=== PATIENT | male | born 1945 | race Caucasian/White ===

== ENCOUNTER 2023-01-09 14:41 | Outpatient (CLI) | payer OTHER, SELFPAY ==
--- NOTE | 2023-01-09 15:15 | USCV_ITS ---
Hernandez Myles Age: 77 Gender: M : 1945 Exam Date: 01/09/2023 15:14 Ordering Phys: Dany Monroe Technologist: AZEEM Exam Location: [facility] [place] Indication: sinus christine BP: 155 / 80 HR: 60 Rhythm: Sinus Technical Quality: Adequate MEASUREMENTS (Male / Female) Normal Values 2D ECHO LV Diastolic Diameter PLAX 4.8 cm 4.2 - 5.9 / 3.9 - 5.3 cm LV Systolic Diameter PLAX 1.8 cm IVS Diastolic Thickness 1.0 cm 0.6 - 1.0 / 0.6 - 0.9 cm IVS Systolic Thickness 2.0 cm LVPW Diastolic Thickness 0.5 cm 0.6 - 1.0 / 0.6 - 0.9 cm LVPW Systolic Thickness 1.6 cm LVOT Diameter 2.0 cm LV Ejection Fraction 2D Teich 90.3 % LV Ejection Fraction MOD 2C 63.8 % LV Ejection Fraction 2C AL 63.9 % LA Diameter 4.3 cm LA Width 3.9 cm LA Height 5.1 cm RA Width 3.6 cm RA Height 5.3 cm Aorta at Sinotubular Diameter 2.4 cm IVC Diameter 2.2 cm M-MODE Aortic Annulus Diameter 3.1 cm LA Ao Ratio MM 1.5 MV E Point Septal Separation 0.6 cm FINDINGS Left Ventricle Right Ventricle Right Atrium Left Atrium Mitral Valve Aortic Valve Tricuspid Valve Pulmonic Valve Pericardium Aorta IVC CONCLUSIONS Limited echocardiogram performed per ordering team request LV systolic function is normal with EF of 50 to 55%. Regional wall motion abnormalities are seen. Valvular assessment with Doppler not performed. RV is normal in size and function For complete valvular assessment, please order full echocardiogram. Jaden Doe MD (Electronically Signed) Final Date: 11 January 2023 10:46 S
== END 2023-01-09 14:42 | disposition home or self-care (01) ==
LOC: RAD 14:41
PROVIDERS: Visit Provider Physician Assistant
DX: R00.1 Bradycardia, unspecified (principal)
CPT/HCPCS: 93308